=== PATIENT | female | born 1965 | race Two or more races ===

== ENCOUNTER 2017-08-04 17:57 | Emergency (ER) | payer BC, OTHER ==
[~2017-08-04] VITALS: Ht 157.5 cm; Wt 72.6 kg
[2017-08-04 18:15] VITALS: BP 160/88
[2017-08-04] MEDS ORDERED: CYCLOBENZAPRINE HCL 10 MG TAB PO ONE (22:45)
[2017-08-04] MEDS ORDERED: IBUPROFEN 600 MG TAB PO ONE (22:45)
== END 2017-08-04 23:54 | disposition home or self-care (01) ==
LOC: EDBD 17:57 → ER 17:57
DX: S16.1XXA Strain of muscle, fascia and tendon at neck level, initial encounter (principal); R07.89 Other chest pain; Z91.013 Allergy to seafood; V43.62XA Car passenger injured in collision with other type car in traffic accident, initial encounter; Y93.89 Activity, other specified; Y99.8 Other external cause status; Y92.410 Unspecified street and highway as the place of occurrence of the external cause
CPT/HCPCS: 71045; 93005